=== PATIENT | female | born 1955 | race Caucasian/White ===

== ENCOUNTER 2016-05-14 05:09 | Day surgery (SDC) | payer BC ==
[2016-05-11 17:32] LABS: HEMATOCRIT 41.2 % (36.0-48.0); HEMOGLOBIN 14.4 g/dL (12.0-16.0)
[2016-05-11 17:57] LABS: BUN (BLOOD UREA NITROGEN) 25 MG/DL (6-23); CHLORIDE, SERUM 104 MMOL/L (96-112); CO2 (CARBON DIOXIDE) 20 MMOL/L (24-34); GLUCOSE, SERUM 105 MG/DL (60-99); SODIUM, SERUM 135 MMOL/L (135-148)
[2016-05-11 18:04] LABS: CALCIUM, SERUM 8.8 MG/DL (8.5-10.4); GFR AFRICAN AMERICAN 57 ML/MIN (>=60); GFR NON AFRICAN AMERICAN 49 ML/MIN (>=60); POTASSIUM, SERUM 2.5 MMOL/L (3.5-5.3)
--- NOTE | ~2016-05-14 | OP ---
Record Of Operation [facility] [address] [place]. [address] NAME: SHARMILA LOCKE : 55 STATUS : REG [facility] [place] PAT#: [id number] AGE: 60 ADM/REG DATE : 05/14/16 MR#: [id number] REPORT SERV DATE: 05/14/16 DICTATED BY: ZA BRADY DATE: 05/14/16 REPORT STATUS : Draft TRANSCRIBED BY: MODL DATE: 05/14/16 DATE OF PROCEDURE: 05/14/2016 PREPROCEDURE DIAGNOSIS: A 6 mm right renal calculus. POSTPROCEDURE DIAGNOSIS: A 6 mm right renal calculus. PROCEDURE: Right ESWL. SURGEON: Za Brady M.D. STRIPPER AND TAPER: Marysol Farmer. ANESTHESIA: General. HISTORY: Ms Locke is a 60-year-old white female with a symptomatic right renal calculus. We discussed treatment options and she requested right ESWL. Risks specific to this procedure include, but not limited to bleeding, infection, incomplete stone fragmentation, Steinstrasse, hematoma, injury to neighboring organs, need for further urologic procedures, anesthesia complications, and so forth. I answered all of her questions I believe to her satisfaction. Subsequently, she requested the procedure and provided her informed written consent. PROCEDURE IN DETAIL: On 05/14/2016, the patient was brought to the lithotripsy suite. She was placed supine on the Dornier Compact Delta II Lithotripter. Biplanar fluoroscopy was used to localize the right renal calculus. A time-out was called. The proper patient and procedure were confirmed. Levaquin was administered as a perioperative antibiotic. At this time, the Anesthesia team established general anesthesia. Subsequently, we delivered a total of 2500 shocks at a power level of 3 in rate of 90 shocks per minute to the stone. Fluoroscopy time was 3 minute 15 seconds. The patient tolerated the procedure well without any immediate complications, was extubated, awakened, and transferred to the recovery area in stable condition. There were no complications. RAC/CONY Za Brady M.D. / [id number] CC: Rachel Rashid M.D.
[~2016-05-14 05:09] MED LIST: AMILORID5B PO; B12100T PO; BIOTIN; FORTEO SC; KLOR-CON 1010 MEQ PO; TRAZ50 PO
== END 2016-05-14 10:01 | disposition home or self-care (01) ==
LOC: SDC 05:09
PROVIDERS: Urology
DX: N20.0 Calculus of kidney (principal); M81.0 Age-related osteoporosis without current pathological fracture; Z88.5 Allergy status to narcotic agent; Z98.890 Other specified postprocedural states
CPT/HCPCS: 50590; 74000; 80048; 84132; 85014; 85018; 93005; J0330; J1170; J2250; J2370; J2405; J2550; J3010